=== PATIENT | female | born 1970 | race Caucasian/White ===

== ENCOUNTER 2021-05-07 14:30 | Inpatient (IN) ==
--- NOTE | 2021-05-07 17:44 | RAD ---
ACUTE ABDOMEN SERIESHISTORY:FeverStudy: Frontal view of the chest, flat and upright views of the abdomenComparison:NoneFindings:Cardiomediastinal silhouette is normal in size.Increased interstitial markings diffuselyThere is a normal bowel gas pattern.No free air. No acute bony abnormalities.IMPRESSION:1.Increased interstitial markings bilaterally which may represent pneumonia.2.No evidence for acute abdominal pathology.Electronically signed by: ANDREA DOMINGUEZ (May 07, 2021 17:42:46)
--- NOTE | 2021-05-07 17:46 | DR.GENAD ---
HPI Time Seen Time Seen by Provider: 05/07/21 17:46 PCP Primary Care Physician: DR. GOPAL ORR Complaint/Symptoms Chief Complaint:: PT C/O LEFT FLANK, FEVER, & FATIGUE X3 DAYS. PT STATES WHEN SHE SNEEZE & COUGH LEFT FLANK PAIN IS WORSE.PT DENIES ANY DYSURIA & HEMATURIA @ THIS TIME. 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 Family History History of Family Medical Conditions: Yes Family Medical History: Cancer, [place], Heart Failure and Hypertension Social History Do you use any recreational Drugs:: No Travel Risk Coronavirus risk:travel/contact w/high risk person: No Has patient experienced Coronavirus symptoms: No Infectious screening Have you traveled outside the country in the last 6 months?: No Isolation: Standard PE Vital Signs Vitals: Temperature 98.0 F Pulse Rate [Right Radial] 90 Pulse Rate 102 Respiratory Rate 18 Blood Pressure [Left Arm] 118/71 Blood Pressure 132/75 O2 Sat by Pulse Oximetry 98 ROR Labs Reviewed Result Diagrams: 05/10/21 05:24 05/10/21 05:24 Laboratory: 05/07/21 17:43 Urine,Clean Catch Urine Culture - Final Klebsiella Pneumoniae WBC 13.2 X10^3/uL (3.6-10.0) H 05/07/21 17:45 RBC 4.52 X10^6/uL (3.5-5.4) 05/07/21 17:45 Hgb 10.9 g/dL (12.0-16.0) L 05/07/21 17:45 Hct 33.7 % (36.0-47.0) L 05/07/21 17:45 MCV 74.6 fL (80.0-100.0) L 05/07/21 17:45 MCH 24.1 pg (27.0-34.0) L 05/07/21 17:45 MCHC 32.4 g/dL (33.0-35.0) L 05/07/21 17:45 RDW 16.1 % (11.6-16.5) 05/07/21 17:45 Plt Count 113 X10^3/uL (150.0-450.0) L 05/07/21 17:45 Plt Count Comment Decreased (ADEQUATE) A 05/07/21 17:45 MPV 8.2 fL (7.4-11.0) 05/07/21 17:45 Neut % (Auto) 92.4 % (42.0-75.0) H 05/07/21 17:45 Lymph % (Auto) 4.1 % (21.0-51.0) L 05/07/21 17:45 [place] % (Auto) 2.5 % (0.0-13.0) 05/07/21 17:45 Eos % (Auto) 0.6 % (0.9-2.9) L 05/07/21 17:45 Baso % (Auto) 0.4 % (0.2-1.0) 05/07/21 17:45 Neut # (Auto) 12.2 x10^3/uL (2.2-4.8) H 05/07/21 17:45 Lymph # (Auto) 0.5 X10^3/uL (1.3-2.9) L 05/07/21 17:45 [place] # (Auto) 0.3 x10^3/uL (0.3-0.8) 05/07/21 17:45 Eos # (Auto) 0.1 x10^3/uL (0.0-0.2) 05/07/21 17:45 Baso # (Auto) 0.1 X10^3/uL (0.0-0.1) 05/07/21 17:45 Absolute Nucleated RBC 0.2 /100WBC 05/07/21 17:45 Total Counted 100 05/07/21 17:45 Neutrophils % (Manual) 96 % (39-76) H 05/07/21 17:45 Lymphocytes % (Manual) 4 % (13-43) L 05/07/21 17:45 Plt Morphology Comment Normal (NORMAL) 05/07/21 17:45 RBC Morphology Abnormal (NORMAL) A 05/07/21 17:45 Microcytosis Slight A 05/07/21 17:45 Sodium 134 mmol/L (136-145) L 05/07/21 17:45 Corrected Sodium TNP 05/07/21 17:45 Potassium 3.2 mmol/L (3.5-5.1) L 05/07/21 17:45 Chloride 101 mmol/L (98-107) 05/07/21 17:45 Carbon Dioxide 22.2 mmol/L (21-32) 05/07/21 17:45 BUN 44 mg/dL (7-18) H 05/07/21 17:45 Creatinine 1.82 mg/dL (0.55-1.02) H 05/07/21 17:45 Est GFR (MDRD) Af Amer 38 (>60) L 05/07/21 17:45 Est GFR (MDRD) Non-Af 31 (>60) L 05/07/21 17:45 Glucose 99 mg/dL (65-99) 05/07/21 17:45 Calcium 9.2 mg/dL (8.5-10.1) 05/07/21 17:45 Corrected Calcium 9.9 mg/dL (8.5-10.1) 05/07/21 17:45 Total Bilirubin 0.60 mg/dL (0.2-1.0) 05/07/21 17:45 AST 17 Units/L (15-37) 05/07/21 17:45 ALT 26 Units/L (12-78) 05/07/21 17:45 Alkaline Phosphatase 108 Units/L (46-116) 05/07/21 17:45 Total Protein 7.9 g/dL (6.4-8.2) 05/07/21 17:45 Albumin 3.1 g/dL (3.4-5.0) L 05/07/21 17:45 Globulin 4.8 g/dL (2.5-4.5) H 05/07/21 17:45 Albumin/Globulin Ratio 0.6 Ratio (1.1-2.1) L 05/07/21 17:45 Amylase 35 Units/L (25-115) 05/07/21 17:45 Lipase 127 Units/L (73-393) 05/07/21 17:45 Specimen Type Clean catch urine 05/07/21 17:43 Urine Color Yellow (YELLOW) 05/07/21 17:43 Urine Appearance Slightly hazy (CLEAR) 05/07/21 17:43 Urine pH 5.0 (5.0 - 8.0) 05/07/21 17:43 Ur Specific [place] 1.015 (1.000-1.030) 05/07/21 17:43 Urine Protein 3+ (NEGATIVE) 05/07/21 17:43 Urine Glucose (UA) Negative (NEGATIVE) 05/07/21 17:43 Urine Ketones Negative (NEGATIVE) 05/07/21 17:43 Urine Occult Blood 3+ (NEGATIVE) 05/07/21 17:43 Urine Nitrite Negative (NEGATIVE) 05/07/21 17:43 Urine Bilirubin Negative (NEGATIVE) 05/07/21 17:43 Urine Urobilinogen Normal (NORMAL) 05/07/21 17:43 Ur Leukocyte Esterase 3+ (NEGATIVE) 05/07/21 17:43 Urine RBC 5-10 /HPF (0-3) A 05/07/21 17:43 Urine WBC 20-30 /HPF (0-5) A 05/07/21 17:43 Ur Squamous Epith Cells Few /HPF (NEGATIVE) 05/07/21 17:43 Urine Bacteria Trace /HPF (NEGATIVE) 05/07/21 17:43 Ur Culture Indicated? Yes/culture set up 05/07/21 17:43 SARS CoV-2 RNA Rapid DIANA Negative (NEGATIVE) 05/07/21 18:55 Opioid Opioid Risk Tool Age ([place] box if 16-45): No History of Preadolescent Sexual Abuse: No Total: 0 Total Score Risk Category: Low Risk Copyright: Tom BROOKE predicting aberrant behaviors Instructions Instructions: How to Use an Incentive Spirometer Antibiotic Medicine, Adult, [id number] Urinary Tract Infection, Adult, [id number] You've Been Prescribed an Antibiotic in the Hospital for an Infection - CDC Managing Your Hypertension Community-Acquired Pneumonia, Adult, Iksw-ic-[id number] Forms: Excuse From Work or School Precautions for COVID19 [facility] Social Distancing
[2021-05-07 18:00] LABS: BASOPHILS # (AUTO) 0.1 X10^3/uL (0.0-0.1); BASOPHILS % (AUTO) 0.4 % (0.2-1.0); EOSINOPHILS # (AUTO) 0.1 x10^3/uL (0.0-0.2); EOSINOPHILS % (AUTO) 0.6 % (0.9-2.9); HEMATOCRIT 33.7 % (36.0-47.0); HEMOGLOBIN 10.9 g/dL (12.0-16.0); LYMPHOCYTES # (AUTO) 0.5 X10^3/uL (1.3-2.9); LYMPHOCYTES % (AUTO) 4.1 % (21.0-51.0); MEAN CORPUSCULAR HEMOGLOBIN 24.1 pg (27.0-34.0); MEAN CORPUSCULAR HGB CONC 32.4 g/dL (33.0-35.0); MEAN CORPUSCULAR VOLUME 74.6 fL (80.0-100.0); MEAN PLATELET VOLUME 8.2 fL (7.4-11.0); MONOCYTES # (AUTO) 0.3 x10^3/uL (0.3-0.8); MONOCYTES % (AUTO) 2.5 % (0.0-13.0); NEUTROPHILS # (AUTO) 12.2 x10^3/uL (2.2-4.8); NEUTROPHILS % (AUTO) 92.4 % (42.0-75.0); PLATELET COUNT 113 X10^3/uL (150.0-450.0); RED BLOOD COUNT 4.52 X10^6/uL (3.5-5.4); RED CELL DISTRIBUTION WIDTH 16.1 % (11.6-16.5); WHITE BLOOD COUNT 13.2 X10^3/uL (3.6-10.0)
[2021-05-07 18:06] LABS: BILIRUBIN,URINE NEGATIVE (NEGATIVE); BLOOD/HEMOGLOBIN,URINE 3+ (NEGATIVE); GLUCOSE, URINE NEGATIVE (NEGATIVE); KETONES,URINE NEGATIVE (NEGATIVE); LEUKOCYTE ESTERASE ,URINE 3+ (NEGATIVE); NITRITES,URINE NEGATIVE (NEGATIVE); PROTEIN,URINE 3+ (NEGATIVE); UROBILINOGEN,URINE NORMAL (NORMAL)
[2021-05-07 18:22] LABS: APPEARANCE,URINE SLIGHTLY HAZY (CLEAR); COLOR,URINE YELLOW (YELLOW)
[2021-05-07 18:23] LABS: ALANINE AMINOTRANSFERASE 26 Units/L (12-78); ALBUMIN 3.1 g/dL (3.4-5.0); ALKALINE PHOSPHATASE 108 Units/L (46-116); AMYLASE 35 Units/L (25-115); ASPARTATE AMINO TRANSFERASE 17 Units/L (15-37); BLOOD UREA NITROGEN 44 mg/dL (7-18); CALCIUM 9.2 mg/dL (8.5-10.1); CARBON DIOXIDE 22.2 mmol/L (21-32); CHLORIDE 101 mmol/L (98-107); COR CA(FOR HYPOALB) 9.9 mg/dL (8.5-10.1); CREATININE 1.82 mg/dL (0.55-1.02); LIPASE 127 Units/L (73-393); SODIUM 134 mmol/L (136-145); TOTAL PROTEIN 7.9 g/dL (6.4-8.2); eGFR NON BLACK RACES 31 (>60)
[2021-05-07 18:23] LABS: BACTERIA,URINE TRACE /HPF (NEGATIVE); SQUAMOUS EPITHELIAL CELL,UR FEW /HPF (NEGATIVE)
[2021-05-07 18:41] LABS: MICROCYTOSIS SLIGHT; PLATELET MORPHOLOGY COMMENT NORMAL (NORMAL)
[2021-05-07] MEDS ORDERED: NS 1,000 ML IV 1,000 ML ONE (19:12)
[2021-05-07] MEDS ORDERED: NS 1,000 ML IV 1,000 ML IV ONE (19:16)
[2021-05-07] MEDS ORDERED: K-RIDER 10 MEQ/NS 100 ML 10 MEQ/100 ML BAG IV ONE ×2 (19:52→19:59)
[2021-05-07] MEDS ORDERED: ROCEPHIN VIAL 1 GRAM IV ONE (19:52)
[2021-05-07] MEDS ORDERED: ROCEPHIN 1 GRAM IV PREMIX 1 G/50 ML IV.SOLN. IV ONE ×2 (21:13→21:25)
[2021-05-08] MEDS ORDERED: NS 1,000 ML IV 1,000 ML ONE (00:28)
[2021-05-08 01:39] VITALS: BMI 27.3
[2021-05-08] MEDS ORDERED: TUSSIONEX PENNKINETIC SUSP PO PRN (04:54)
[2021-05-08] MEDS ORDERED: NS 1/2 1,000 ML IV 1,000 ML IV ONE (05:22)
[2021-05-08] MEDS ORDERED: ZITHROMAX INJ 500 MG VIAL 500 MG in NS 250 ML IV 250 ML IV SCH (06:00)
[2021-05-08] MEDS: NS 1/2 1,000 ML IV 1,000 ML IV SCH ×2 (06:07→21:36)
[2021-05-08 06:13] LABS: BASOPHILS % (AUTO) 0.2 % (0.2-1.0); EOSINOPHILS % (AUTO) 0.2 % (0.9-2.9); HEMATOCRIT 26.9 % (36.0-47.0); HEMOGLOBIN 8.9 g/dL (12.0-16.0); LYMPHOCYTES # (AUTO) 0.3 X10^3/uL (1.3-2.9); LYMPHOCYTES % (AUTO) 2.8 % (21.0-51.0); MEAN CORPUSCULAR HEMOGLOBIN 24.4 pg (27.0-34.0); MEAN PLATELET VOLUME 8.7 fL (7.4-11.0); MONOCYTES # (AUTO) 0.6 x10^3/uL (0.3-0.8); MONOCYTES % (AUTO) 5.9 % (0.0-13.0); NEUTROPHILS # (AUTO) 9.9 x10^3/uL (2.2-4.8); NEUTROPHILS % (AUTO) 90.9 % (42.0-75.0); PLATELET COUNT 80 X10^3/uL (150.0-450.0); RED BLOOD COUNT 3.64 X10^6/uL (3.5-5.4); RED CELL DISTRIBUTION WIDTH 16.2 % (11.6-16.5); WHITE BLOOD COUNT 10.8 X10^3/uL (3.6-10.0)
[2021-05-08 06:26] LABS: ALBUMIN 2.2 g/dL (3.4-5.0); CALCIUM 7.9 mg/dL (8.5-10.1); CARBON DIOXIDE 19.8 mmol/L (21-32); COR CA(FOR HYPOALB) 9.3 mg/dL (8.5-10.1); CREATININE 1.23 mg/dL (0.55-1.02); TOTAL PROTEIN 6.2 g/dL (6.4-8.2)
[2021-05-08 07:00] LABS: METAMYELOCYTES % 3; MYELOCYTES % 3
[2021-05-08 07:01] LABS: MICROCYTOSIS SLIGHT
[2021-05-08 07:20] LABS: PLATELET MORPHOLOGY COMMENT NORMAL (NORMAL)
[2021-05-08] MEDS: ROBITUSSIN DM PO SCH ×4 (08:45→21:36)
[2021-05-08] MEDS: VSL#3 PO SCH (08:45)
[2021-05-08] MEDS ORDERED: VIBRAMYCIN 100 MG in NS 100 ML IV + SPIKE MINIBAG* 100 ML IV SCH (09:00)
[2021-05-08] MEDS: DUONEB 0.5 MG/3 MG (3 mL) NEB SCH ×4 (09:10→20:49)
[2021-05-08] MEDS: PULMICORT NEB TX 0.5 MG NEB SCH ×2 (09:10→20:49)
[2021-05-08] MEDS: FORTAZ or TAZICEF VIAL INJ 1 G in NS 100 ML IV + SPIKE MINIBAG* 100 ML IV SCH ×3 (11:24→21:36)
[2021-05-08] MEDS: SOLU-Medrol 40 MG VIAL IVP SCH ×3 (11:25→21:36)
[2021-05-08] MEDS: LEVAQUIN PREMIX IV 750 MG 750 MG/150 ML BAG IV SCH (14:14)
--- NOTE | 2021-05-08 14:52 | DR.H&P ---
H&P - History & Physical for Day of: H&P Date: 05/07/21 - Chief Complaint Chief Complaint: LEFT FLANK PAIN, FEVER, FATIGUE, COUGH, SHORTNESS OF BREATH - History of Present Illness History of Present Illness: IS A 51 YEAR OLD PATIENT OF [facility]. SHE PRESENTED TO THE ER WITH COMPLAINTS OF LEFT FLANK PAIN, FEVER, FATIGUE, COUGH, AND SHORTNESS OF BREATH X 3 DAYS. SHE DENIES DYSURIA OR HEMATURIA. 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 ON ARRIVAL TO THE HOSPITAL, VITALS WERE: 98.2-97-18-97%-110/68. LABS WERE OBTAINED. ABNORMAL LAB VALUES INCLUDE THE FOLLOWING: WBC 13.2, HGB 10.9, HCT 33.7, PLT COUNT 113, SODIUM 134, POTASSIUM 3.2, BUN 44, CREATININE 1.82, ALBUMIN 3.1, GLOBULIN 4.8. URINALYSIS WAS OBTAINED AND REVEALED: WBC 20-30, RBC 5-10, LEUKOCYTES 3+, BACTERIA TRACE, PROTEIN 3+. COVID-19 NEGATIVE. URINE AND BLOOD CULTRUES WERE SET UP. AN ABDOMEN XRAY WAS OBTAINED AND REVEALED: 1.Increased interstitial markings bilaterally which may represent pneumonia. 2.No evidence for acute abdominal pathology. IN THE ER, SHE WAS GIVEN A NORMAL SALINE BOLUS, POTASSIUM CHLORIDE 10MEQ IV X 1, ROCEPHIN 1G IV X 1 DOSE, ZITHROMAX 500MG IV X 1 DOSE, AND VIBRAMYCIN 100MG IV X 1 DOSE. SHE WAS ADMITTED TO THE HOSPITAL FOR FURTHER EVALUATION AND TREATMENT. ON ADMISSION, WE WAS STARTED ON 1/2NS AT 75 ML/HR, FOTAZ 1G IV Q8H, LEVAQUIN 750MG IV DAILY, PULMICORT NEBS BID, DUONEBS QID, TUSSIONEX 5ML PO Q12H PRN, ROBITUSSIN DM 10ML PO QID, PROBIOTICS DAILY, AND SOLU-MEDROL 20MG IV Q8H. OTHERWISE, WE PLAN TO FOLLOW UP WITH AM LABS AND CHEST XRAY AND CONTINUE TO MONITOR. TIME SPENT ON CLINICAL ASSESSMENT, REVIEWING LABS AND IMAGING, DECISION MAKING, AND DOCUMENTATION WAS GREATER THAN 75 MINUTES. 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 - Family History Family Medical History: Diabetes Mellitus, Cancer, [place], Heart Failure, Hypertension - Social History Does patient currently use any type of tobacco product: No Have you used tobacco products in the last 12 months: No Type of Tobacco Use: None Does any household member use tobacco: No Alcohol Use: None Drug Use: None - Medications Home Medications: Penicillins Allergy (Verified 03/02/19 06:18) CONTINUE taking the following medications metoprolol tartrate 25 mg PO BID 05/08/21 [History] - Review of Systems Constitutional: Fever Eyes: No Symptoms Reported ENT: No Symptoms Reported Respiratory: See HPI, Cough, Shortness of Breath Cardiovascular: No Symptoms Reported Gastrointestinal: See HPI (LEFT FLANK PAIN ) Genitourinary: No Symptoms Reported Skin: No Symptoms Reported Neurological: No Symptoms Reported - Physical Exam Vital Signs: Temperature 99.0 F Pulse Rate [Right Radial] 104 Pulse Rate 107 Respiratory Rate 20 Blood Pressure [Right Arm] 136/80 Blood Pressure [Left Arm] 118/71 Blood Pressure 132/75 O2 Sat by Pulse Oximetry 96 Oriented: Normal Eyes: Normal Ear: Normal Nose: Normal Throat: Normal Respiratory: Diminished Throughout Cardiovascular: Normal : Normal Auscultation: Bowel Sounds: Normal Palpation: Normal Tenderness: LLQ (LEFT FLANK ), Mild Skin: Normal Musculoskeletal: Normal Psychiatric: Normal Mood Description: Calm Affect: Normal Speech Pattern: Clear - Assessment/Plan (1) Pneumonia Qualifiers: Pneumonia type: due to unspecified organism Laterality: bilateral Lung location: unspecified part of lung Qualified Code(s): J18.9 - Pneumonia, unspecified organism Status: Acute Plan: ADMIT, 1/2NS AT 75 ML/HR, FOTAZ 1G IV Q8H, LEVAQUIN 750MG IV DAILY, PULMICORT NEBS BID, DUONEBS QID, TUSSIONEX 5ML PO Q12H PRN, ROBITUSSIN DM 10ML PO QID, PROBIOTICS DAILY, AND SOLU-MEDROL 20MG IV Q8H. (2) Urinary tract infection Qualifiers: Urinary tract infection type: acute cystitis Hematuria presence: with hematuria Qualified Code(s): N30.01 - Acute cystitis with hematuria Status: Acute - Allergies Allergies/Adverse Reactions: Allergies Allergy/AdvReac Type Severity Reaction Status Date / Time Penicillins Allergy Verified 03/02/19 06:18
[2021-05-08] MEDS ORDERED: POTASSIUM CHL 60 MEQ/NS 0.45% 500 ML IV PRN (16:11)
[2021-05-08] MEDS ORDERED: KLOR-CON PO PRN (16:11)
[2021-05-08] MEDS ORDERED: POTASSIUM CHLORIDE LIQ 20 MEQ UDC PO PRN (16:11)
[2021-05-08] MEDS ORDERED: K-DUR TAB 20 MEQ PO PRN (16:11)
[2021-05-08] MEDS ORDERED: K-RIDER 10 MEQ/NS 100 ML 10 MEQ/100 ML BAG IV PRN (16:11)
[2021-05-08] MEDS ORDERED: POTASSIUM CHL 40 MEQ/NS 0.45% 500 ML IV PRN (16:11)
[2021-05-08] MEDS ORDERED: MICRO K EXTEN CAP 10 MEQ PO PRN (16:11)
[2021-05-08] MEDS: MAGNESIUM SULFATE 1 GRAM/100 mL PREMIX 1 G/100 ML BAG IV PRN ×2 (17:21→23:39)
[2021-05-08] MEDS: LOPRESSOR TAB 25 MG PO SCH (21:36)
[2021-05-09] MEDS: FORTAZ or TAZICEF VIAL INJ 1 G in NS 100 ML IV + SPIKE MINIBAG* 100 ML IV SCH ×3 (05:48→21:06)
[2021-05-09] MEDS: SOLU-Medrol 40 MG VIAL IVP SCH ×3 (05:48→21:06)
[2021-05-09 06:54] LABS: BASOPHILS % (AUTO) 0.2 % (0.2-1.0); EOSINOPHILS % (AUTO) 0.1 % (0.9-2.9); HEMATOCRIT 27.3 % (36.0-47.0); HEMOGLOBIN 8.9 g/dL (12.0-16.0); LYMPHOCYTES # (AUTO) 0.4 X10^3/uL (1.3-2.9); LYMPHOCYTES % (AUTO) 4.9 % (21.0-51.0); MEAN CORPUSCULAR HEMOGLOBIN 24.1 pg (27.0-34.0); MEAN CORPUSCULAR HGB CONC 32.6 g/dL (33.0-35.0); MONOCYTES # (AUTO) 0.2 x10^3/uL (0.3-0.8); MONOCYTES % (AUTO) 2.2 % (0.0-13.0); NEUTROPHILS # (AUTO) 7.8 x10^3/uL (2.2-4.8); NEUTROPHILS % (AUTO) 92.6 % (42.0-75.0); PLATELET COUNT 75 X10^3/uL (150.0-450.0); RED BLOOD COUNT 3.69 X10^6/uL (3.5-5.4); RED CELL DISTRIBUTION WIDTH 16.3 % (11.6-16.5); WHITE BLOOD COUNT 8.4 X10^3/uL (3.6-10.0)
[2021-05-09] MEDS ORDERED: NS 1/2 1,000 ML IV 1,000 ML IV ONE (06:54)
--- NOTE | 2021-05-09 07:11 | RAD ---
HISTORYSOBSTUDYCHEST, 1 VIEWCOMPARISONAcute abdomen series from 05/07/2021.TECHNIQUEAP view of the chestFINDINGSCardiac and mediastinal contours are within normal limits. Stable mild bilateral interstitial opacities. No definite pleural effusion or pneumothorax.IMPRESSIONStable mild bilateral interstitial opacities that can be seen with pulmonary edema and atypical pneumonia in the acute setting.Electronically signed by: Reuben Golden (May 09, 2021 07:09:56)
[2021-05-09 07:20] LABS: ALANINE AMINOTRANSFERASE 23 Units/L (12-78); ALBUMIN 2.3 g/dL (3.4-5.0); ALKALINE PHOSPHATASE 118 Units/L (46-116); ASPARTATE AMINO TRANSFERASE 15 Units/L (15-37); BLOOD UREA NITROGEN 15 mg/dL (7-18); CALCIUM 8.7 mg/dL (8.5-10.1); CARBON DIOXIDE 20.1 mmol/L (21-32); CHLORIDE 106 mmol/L (98-107); COR CA(FOR HYPOALB) 10.1 mg/dL (8.5-10.1); COR NA(FOR HYPERGLY) 139 mmol/L (136-145); CREATININE 0.85 mg/dL (0.55-1.02); SODIUM 137 mmol/L (136-145); TOTAL PROTEIN 6.8 g/dL (6.4-8.2); eGFR NON BLACK RACES > 60 (>60)
[2021-05-09 07:23] LABS: BAND NEUTROPHILS % 3 % (0-10); PLATELET MORPHOLOGY COMMENT NORMAL (NORMAL)
[2021-05-09 07:24] LABS: MICROCYTOSIS SLIGHT
[2021-05-09] MEDS: DUONEB 0.5 MG/3 MG (3 mL) NEB SCH ×5 (08:55→20:18)
[2021-05-09] MEDS: PULMICORT NEB TX 0.5 MG NEB SCH ×2 (08:55→20:18)
[2021-05-09] MEDS: NS 1/2 1,000 ML IV 1,000 ML IV SCH (09:03)
[2021-05-09] MEDS: LEVAQUIN PREMIX IV 750 MG 750 MG/150 ML BAG IV SCH (09:03)
[2021-05-09] MEDS: ROBITUSSIN DM PO SCH ×4 (09:04→20:16)
[2021-05-09] MEDS: LOPRESSOR TAB 25 MG PO SCH ×2 (09:04→20:16)
[2021-05-09] MEDS: PriLOSEC PO SCH (09:04)
[2021-05-09] MEDS: VSL#3 PO SCH (09:04)
--- NOTE | 2021-05-09 12:51 | PCM.PROG ---
Progress Note - Progress Note for Day of Date of Exam: 05/09/21 - Subjective Subjective: WAS ADMITTED FOR TREATMENT OF BILATERAL PNEUMONIA AND A URINARY TRACT INFECTION. TODAY, SHE IS ALERT AND ORIENTED, LYING IN BED ON MORNING ROUNDS. SHE CONTINUES WITH COMPLAINTS OF SHORTNESS OF BREATH AND WEAKNESS. SHE DOES STILL HAVE SLIGHT FLANK PAIN AT TIMES. SHE ADMITS TO SLIGHT I MPROVEMENT IN SYMPTOMS SINCE ADMISSION. ON EXAMINATION, HEART IS REGULAR IN RATE AND RHYTHM. BILATERAL LUNGS ARE NOTED WITH DIMINISHED LUNG SOUNDS THROUGHOUT. ABDOMEN IS ROUND, SOFT, AND NON-TENDER WITH NORMAL BOWEL SOUNDS NOTED IN ALL QUADRANTS. HER VITALS THIS MORNING ARE: 98.3-82-20-96%-125/87. LABS WERE OBTAINED. ABNORMAL LAB VALUES INCLUDE THE FOLLOWING: HGB 8.9, HCT 27.3, PLT COUNT 75, CARBON DIOXIDE 20.1, GLUCOSE 167, ALK PHOS 118, ALBUMIN 2.3. BLOOD CULTURES ARE PENDING. URINE CULTURE REVEALS GROWTH OF KLEBSIELLA PNEUMONIAE. CHEST XRAY WAS OBTAINED AND REVEALED: Stable mild bilateral interstitial opacities that can be seen with pulmonary edema and atypical pneumonia in the acute setting. SHE IS CURRENTLY RECEIVING NS AT 75 ML/HR, FOTAZ 1G IV Q8H, LEVAQUIN 750MG IV DAILY, PULMICORT NEBS BID, DUONEBS QID, TUSSIONEX 5ML PO Q12H PRN, ROBITUSSIN DM 10ML PO QID, PROBIOTICS DAILY, AND SOLU-MEDROL 20MG IV Q8H. OTHERWISE, WE PLAN TO FOLLOW UP WITH AM LABS AND CHEST XRAY AND CONTINUE TO MONITOR. TIME SPENT ON CLINICAL ASSESSMENT, REVIEWING LABS AND IMAGING, DECISION MAKING, AND DOCUMENTATION WAS GREATER THAN 45 MINUTES. - Past Medical Family Social History Past Med/Fam/Surg Hx: No changes since H&P Allergies: Allergies Penicillins Allergy (Verified 03/02/19 06:18) - Review of Systems ROS: No change since H&P - Vital Signs and I&O's Vital Signs: Temperature 97.7 F Pulse Rate [Right Radial] 82 Pulse Rate 80 Respiratory Rate 20 Blood Pressure [Right Arm] 139/81 Blood Pressure [Left Arm] 118/71 Blood Pressure 132/75 O2 Sat by Pulse Oximetry 97 Intake and Output: Intake & Output 05/07/21 05/08/21 05/09/21 05/10/21 11:59 11:59 11:59 11:59 Intake Total 680 / 680 3252 / 3252 Balance 680 / 680 3252 / 3252 - Physical Exam Oriented: Normal Eyes: Normal Ear: Normal Nose: Normal Throat: Normal Cardiovascular: Normal : Normal Auscultation: Bowel Sounds: Normal Palpation: Normal Tenderness: LLQ (LEFT FLANK ), Mild Skin: Normal Musculoskeletal: Normal Psychiatric: Normal Mood Description: Calm Affect: Normal Speech Pattern: Clear, Appropriate - Laboratory and Diagnostics Result Diagrams: 05/09/21 05:56 05/09/21 05:56 Labs: 05/07/21 17:43 Urine,Clean Catch Urine Culture - Final Klebsiella Pneumoniae Laboratory WBC 8.4 X10^3/uL (3.6-10.0) 05/09/21 05:56 RBC 3.69 X10^6/uL (3.5-5.4) 05/09/21 05:56 Hgb 8.9 g/dL (12.0-16.0) L 05/09/21 05:56 Hct 27.3 % (36.0-47.0) L 05/09/21 05:56 MCV 74.0 fL (80.0-100.0) L 05/09/21 05:56 MCH 24.1 pg (27.0-34.0) L 05/09/21 05:56 MCHC 32.6 g/dL (33.0-35.0) L 05/09/21 05:56 RDW 16.3 % (11.6-16.5) 05/09/21 05:56 Plt Count 75 X10^3/uL (150.0-450.0) L 05/09/21 05:56 Plt Count Comment Decreased (ADEQUATE) A 05/09/21 05:56 MPV 9.0 fL (7.4-11.0) 05/09/21 05:56 Neut % (Auto) 92.6 % (42.0-75.0) H 05/09/21 05:56 Lymph % (Auto) 4.9 % (21.0-51.0) L 05/09/21 05:56 [place] % (Auto) 2.2 % (0.0-13.0) 05/09/21 05:56 Eos % (Auto) 0.1 % (0.9-2.9) L 05/09/21 05:56 Baso % (Auto) 0.2 % (0.2-1.0) 05/09/21 05:56 Neut # (Auto) 7.8 x10^3/uL (2.2-4.8) H 05/09/21 05:56 Lymph # (Auto) 0.4 X10^3/uL (1.3-2.9) L 05/09/21 05:56 [place] # (Auto) 0.2 x10^3/uL (0.3-0.8) L 05/09/21 05:56 Eos # (Auto) 0.0 x10^3/uL (0.0-0.2) 05/09/21 05:56 Baso # (Auto) 0.0 X10^3/uL (0.0-0.1) 05/09/21 05:56 Absolute Nucleated RBC 0.0 /100WBC 05/09/21 05:56 Total Counted 100 05/09/21 05:56 Neutrophils % (Manual) 92 % (39-76) H 05/09/21 05:56 Band Neutrophils % 3 % (0-10) 05/09/21 05:56 Lymphocytes % (Manual) 1 % (13-43) L 05/09/21 05:56 Monocytes % (Manual) 4 % (4-9) 05/09/21 05:56 Metamyelocytes % 3 05/08/21 05:24 Myelocytes % 3 05/08/21 05:24 Plt Morphology Comment Normal (NORMAL) 05/09/21 05:56 RBC Morphology Abnormal (NORMAL) A 05/09/21 05:56 Microcytosis Slight A 05/09/21 05:56 Sodium 137 mmol/L (136-145) 05/09/21 05:56 Corrected Sodium 139 mmol/L (136-145) 05/09/21 05:56 Potassium 4.4 mmol/L (3.5-5.1) 05/09/21 05:56 Chloride 106 mmol/L (98-107) 05/09/21 05:56 Carbon Dioxide 20.1 mmol/L (21-32) L 05/09/21 05:56 BUN 15 mg/dL (7-18) 05/09/21 05:56 Creatinine 0.85 mg/dL (0.55-1.02) 05/09/21 05:56 Est GFR (MDRD) Af Amer > 60 (>60) 05/09/21 05:56 Est GFR (MDRD) Non-Af > 60 (>60) 05/09/21 05:56 Glucose 167 mg/dL (65-99) H 05/09/21 05:56 Calcium 8.7 mg/dL (8.5-10.1) 05/09/21 05:56 Corrected Calcium 10.1 mg/dL (8.5-10.1) 05/09/21 05:56 Magnesium 1.8 mg/dL (1.7-2.9) 05/08/21 05:24 Total Bilirubin 0.50 mg/dL (0.2-1.0) 05/09/21 05:56 AST 15 Units/L (15-37) 05/09/21 05:56 ALT 23 Units/L (12-78) 05/09/21 05:56 Alkaline Phosphatase 118 Units/L (46-116) H 05/09/21 05:56 Total Protein 6.8 g/dL (6.4-8.2) 05/09/21 05:56 Albumin 2.3 g/dL (3.4-5.0) L 05/09/21 05:56 Globulin 4.5 g/dL (2.5-4.5) 05/09/21 05:56 Albumin/Globulin Ratio 0.5 Ratio (1.1-2.1) L 05/09/21 05:56 Amylase 35 Units/L (25-115) 05/07/21 17:45 Lipase 127 Units/L (73-393) 05/07/21 17:45 Specimen Type Clean catch urine 05/07/21 17:43 Urine Color Yellow (YELLOW) 05/07/21 17:43 Urine Appearance Slightly hazy (CLEAR) 05/07/21 17:43 Urine pH 5.0 (5.0 - 8.0) 05/07/21 17:43 Ur Specific [place] 1.015 (1.000-1.030) 05/07/21 17:43 Urine Protein 3+ (NEGATIVE) 05/07/21 17:43 Urine Glucose (UA) Negative (NEGATIVE) 05/07/21 17:43 Urine Ketones Negative (NEGATIVE) 05/07/21 17:43 Urine Occult Blood 3+ (NEGATIVE) 05/07/21 17:43 Urine Nitrite Negative (NEGATIVE) 05/07/21 17:43 Urine Bilirubin Negative (NEGATIVE) 05/07/21 17:43 Urine Urobilinogen Normal (NORMAL) 05/07/21 17:43 Ur Leukocyte Esterase 3+ (NEGATIVE) 05/07/21 17:43 Urine RBC 5-10 /HPF (0-3) A 05/07/21 17:43 Urine WBC 20-30 /HPF (0-5) A 05/07/21 17:43 Ur Squamous Epith Cells Few /HPF (NEGATIVE) 05/07/21 17:43 Urine Bacteria Trace /HPF (NEGATIVE) 05/07/21 17:43 Ur Culture Indicated? Yes/culture set up 05/07/21 17:43 SARS CoV-2 RNA Rapid DIANA Negative (NEGATIVE) 05/07/21 18:55 - Plan (1) Pneumonia Status: Acute Qualifiers: Pneumonia type: due to unspecified organism Laterality: bilateral Lung location: unspecified part of lung Qualified Code(s): J18.9 - Pneumonia, unspecified organism Plan: 1/2NS AT 75 ML/HR, FOTAZ 1G IV Q8H, LEVAQUIN 750MG IV DAILY, PULMICORT NEB S BID, DUONEBS QID, TUSSIONEX 5ML PO Q12H PRN, ROBITUSSIN DM 10ML PO QID, PROBIOTICS DAILY, AND SOLU-MEDROL 20MG IV Q8H. (2) Urinary tract infection Status: Acute Qualifiers: Urinary tract infection type: acute cystitis Hematuria presence: with hematuria Qualified Code(s): N30.01 - Acute cystitis with hematuria
[2021-05-10] MEDS ORDERED: NS 1/2 1,000 ML IV 1,000 ML IV ONE (05:02)
[2021-05-10] MEDS: NS 1/2 1,000 ML IV 1,000 ML IV SCH (05:37)
[2021-05-10] MEDS: SOLU-Medrol 40 MG VIAL IVP SCH (05:38)
[2021-05-10] MEDS: FORTAZ or TAZICEF VIAL INJ 1 G in NS 100 ML IV + SPIKE MINIBAG* 100 ML IV SCH (05:38)
--- NOTE | 2021-05-10 05:52 | RAD ---
PROCEDURE: Chest X-ray 1 View .HISTORY: Dyspnea.TECHNIQUE: AP view .COMPARISON: 05/09/2021.TECHNICAL QUALITY: Satisfactory .FINDINGS:Unremarkable cardio mediastinal silhouette and normal central vascularity.Unchanged hazy increased density at the bases could represent pneumonia or atelectasis. No pleural fluid or pneumothorax.IMPRESSION:Unchanged hazy increased density lung bases related to pneumonia or atelectasis.Electronically signed by: João Archuleta (May 10, 2021 05:51:07)
[2021-05-10 06:24] LABS: BASOPHILS % (AUTO) 0.1 % (0.2-1.0); HEMATOCRIT 25.3 % (36.0-47.0); HEMOGLOBIN 8.3 g/dL (12.0-16.0); LYMPHOCYTES # (AUTO) 0.5 X10^3/uL (1.3-2.9); LYMPHOCYTES % (AUTO) 6.8 % (21.0-51.0); MEAN CORPUSCULAR HEMOGLOBIN 24.4 pg (27.0-34.0); MEAN CORPUSCULAR HGB CONC 32.8 g/dL (33.0-35.0); MEAN CORPUSCULAR VOLUME 74.3 fL (80.0-100.0); MEAN PLATELET VOLUME 8.9 fL (7.4-11.0); MONOCYTES # (AUTO) 0.4 x10^3/uL (0.3-0.8); MONOCYTES % (AUTO) 5.1 % (0.0-13.0); NEUTROPHILS # (AUTO) 6.5 x10^3/uL (2.2-4.8); PLATELET COUNT 93 X10^3/uL (150.0-450.0); RED CELL DISTRIBUTION WIDTH 16.4 % (11.6-16.5); WHITE BLOOD COUNT 7.4 X10^3/uL (3.6-10.0)
[2021-05-10 06:41] LABS: ALANINE AMINOTRANSFERASE 17 Units/L (12-78); ALBUMIN 2.3 g/dL (3.4-5.0); ALKALINE PHOSPHATASE 99 Units/L (46-116); ASPARTATE AMINO TRANSFERASE 8 Units/L (15-37); BLOOD UREA NITROGEN 23 mg/dL (7-18); CALCIUM 8.7 mg/dL (8.5-10.1); CARBON DIOXIDE 23.1 mmol/L (21-32); CHLORIDE 107 mmol/L (98-107); COR CA(FOR HYPOALB) 10.1 mg/dL (8.5-10.1); COR NA(FOR HYPERGLY) 138 mmol/L (136-145); CREATININE 1.04 mg/dL (0.55-1.02); SODIUM 137 mmol/L (136-145); TOTAL PROTEIN 6.2 g/dL (6.4-8.2); eGFR NON BLACK RACES 59 (>60)
[2021-05-10 07:18] LABS: HYPOCHROMASIA SLIGHT; MICROCYTOSIS SLIGHT; PLATELET MORPHOLOGY COMMENT NORMAL (NORMAL)
[2021-05-10] MEDS: LEVAQUIN PREMIX IV 750 MG 750 MG/150 ML BAG IV SCH (08:24)
[2021-05-10] MEDS: ROBITUSSIN DM PO SCH (08:26)
[2021-05-10] MEDS: PriLOSEC PO SCH (08:26)
[2021-05-10] MEDS: LOPRESSOR TAB 25 MG PO SCH (08:26)
[2021-05-10] MEDS: VSL#3 PO SCH (08:26)
[2021-05-10] MEDS: PULMICORT NEB TX 0.5 MG NEB SCH (08:35)
[2021-05-10] MEDS: DUONEB 0.5 MG/3 MG (3 mL) NEB SCH (08:35)
[2021-05-10 09:06] VITALS: BP 140/84
== END 2021-05-10 11:05 | disposition home or self-care (01) | DRG 194 ==
LOC: ER 14:33 → MED/SURG 23:44
PROVIDERS: ADMIT Internal Medicine; ATTEND Internal Medicine
DX: Z20.822 Contact with and (suspected) exposure to COVID-19; R06.02 Shortness of breath; R10.84 Generalized abdominal pain; J18.8 Other pneumonia, unspecified organism; E87.0 Hyperosmolality and hypernatremia; B96.1 Klebsiella pneumoniae [K. pneumoniae] as the cause of diseases classified elsewhere; N39.0 Urinary tract infection, site not specified